=== PATIENT | female | born 1930 | race Caucasian/White ===

== ENCOUNTER 2017-03-01 05:16 | Day surgery (SDC) | payer MEDICARE, OTHER ==
[~2017-03-01] VITALS: Ht 162.6 cm; Wt 65.2 kg
[~2017-03-01 05:16] MED LIST: COUM2TAB PO; LANO0.2510 PO; NEXI40CA PO; TOBRA.3%O RIGHT EYE; TOPR100T15 PO
[2017-03-01] MEDS ORDERED: MUPIROCIN 2% OINT 1 APPLIC/GM SYR NASAL SCH (05:45)
[2017-03-01] MEDS ORDERED: POVIDONE IODINE 5% (ANTISEPSIS KIT) 4 APPLICATIONS EACH NARE SCH (05:45)
[2017-03-01] MEDS ORDERED: CHLORHEXIDINE GLUCONATE 2 % 1 PACK (2 CLOTHS) TOPICAL PRN (05:45)
[2017-03-01] MEDS ORDERED: SODIUM CHLORID 0.9% 500 ML IV PRN (05:45)
[2017-03-01] MEDS ORDERED: NS 1000 ML IV SCH (05:45)
[2017-03-01] MEDS ORDERED: Hold AM Insulin & AM Hypoglycemic medications in diabetic patients PRN (05:45)
[2017-03-01] MEDS ORDERED: NO Heparin, Lovenox, Coumadin at least 12 hours prior to procedure. PRN (05:45)
[2017-03-01] MEDS ORDERED: VANCOMYCIN 1000 MG/NS 250 ML IV SCH ×2 (05:45)
[2017-03-01] MEDS ORDERED: POVIDONE IODINE 5% (ANTISEPSIS KIT) 4 APPLICATIONS EACH NARE PRN (05:45)
[2017-03-01] MEDS ORDERED: LACTATED RINGER'S 1000 ML IV PRN (05:45)
[2017-03-01] MEDS ORDERED: CHLORHEXIDINE GLUCONATE 2 % 1 PACK (2 CLOTHS) TOPICAL SCH (05:45)
[2017-03-01 06:04] VITALS: BP 184/80; PULSE 60; RESP 18; TEMP 98.4; O2SAT 92
[2017-03-01 06:10] LABS: AUTOMATED NEUTROPHIL # 9.1 TH/MM3 (1.8-7.7); BASOPHIL # 0.1 TH/MM3 (0-0.2); BASOPHIL % 0.8 % (0.0-2.0); EOSINOPHIL # 0.2 TH/MM3 (0-0.4); EOSINOPHIL % 1.9 % (0.0-4.0); HEMATOCRIT 40.2 % (35.0-46.0); HEMOGLOBIN 13.1 GM/DL (11.6-15.3); LYMPH % 10.7 % (9.0-44.0); LYMPHOCYTE # 1.3 TH/MM3 (1.0-4.8); MEAN CELL VOLUME 88.2 FL (80.0-100.0); MEAN CORPUSCULAR HEMOGLOBIN 28.7 PG (27.0-34.0); MEAN CORPUSCULAR HGB CONC 32.5 % (32.0-36.0); MEAN PLATELET VOLUME 9.3 FL (7.0-11.0); MONO % 11.2 % (0.0-8.0); MONOCYTE # 1.4 TH/MM3 (0-0.9); NEUT % 75.4 % (16.0-70.0); PLATELET COUNT 279 TH/MM3 (150-450); RED BLOOD COUNT 4.56 MIL/MM3 (4.00-5.30); RED CELL DISTRIBUTION WIDTH 16.8 % (11.6-17.2); WHITE BLOOD COUNT 12.1 TH/MM3 (4.0-11.0)
[2017-03-01 06:23] LABS: PROTHROMBIN TIME - PATIENT 23.4 SEC (9.8-11.6)
[2017-03-01 06:25] LABS: INTERNATIONAL NORMALIZED RATIO 2.3 RATIO
[2017-03-01] MEDS ORDERED: CALC600T10 PO (06:30)
[2017-03-01] MEDS ORDERED: ATEN25TA PO (06:30)
[2017-03-01] MEDS ORDERED: HYDR-3799 PO (06:30)
[2017-03-01] MEDS ORDERED: BIOT10TA PO (06:30)
[2017-03-01] MEDS ORDERED: ACAR25TA PO (06:30)
[2017-03-01] MEDS ORDERED: GLIP5TAB8 PO (06:30)
[2017-03-01] MEDS ORDERED: CHOL5000 PO (06:30)
[2017-03-01] MEDS ORDERED: VITA100T54 PO (06:30)
[2017-03-01] MEDS ORDERED: COUM2TAB PO (06:30)
[2017-03-01] MEDS ORDERED: DIGO0.12 PO (06:30)
[2017-03-01] MEDS ORDERED: VALS1TAB70 PO (06:30)
[2017-03-01] MEDS ORDERED: MIRA50TA PO (06:30)
[2017-03-01 06:35] LABS: BICARBONATE 22.6 MEQ/L (21.0-32.0); CALCIUM 8.8 MG/DL (8.5-10.1); CREATININE 1.56 MG/DL (0.50-1.00)
[2017-03-01] MEDS ORDERED: PROPOFOL 200 MG/20 ML AMP ONE (07:12)
[2017-03-01] MEDS ORDERED: MIDAZOLAM HCL 2 MG/2 ML VIAL ONE (07:13)
[2017-03-01] MEDS ORDERED: VANCOMYCIN 500 MG VIAL ONE (07:15)
[2017-03-01] MEDS ORDERED: LIDOCAINE HCL 2% 50 ML VIAL ONE (07:23)
[2017-03-01] MEDS ORDERED: SODIUM CHLORIDE 0.9% FLUSH 10 ML FLUSH IV FLUSH PRN (08:15)
[2017-03-01] MEDS ORDERED: ACETAMINOPHEN/CODEINE 300 MG/30 MG TAB PO PRN ×2 (08:15)
[2017-03-01] MEDS ORDERED: ONDANSETRON HCL 4 MG/2 ML VIAL IV PUSH PRN (08:15)
--- NOTE | 2017-03-01 08:15 | CATHPROC ---
[employer] HIS Report Study Information Study Number Admission Scheduled Start Study Start [id number] Mar 01 2017 5:16AM 03/01/2017 Mar 01 2017 6:55AM [address] [facility] Cardiac Pacer/ICD Admit Source Facility Department Other [facility] - Physical Director Physician and Clinical Staff Initial Eugenie Loja As400 Developer Manisha Mcbride RT(R) As400 Developer Roosevelt Carroll Other Anesthesia, MANAGER CAREER Recorder Iza Ndiaye,RN Recorder Cecilia Bates,BSRN Scrub Sanjeev Rosario RCIS(BS) Equipment Time Sr. Payroll Processor Description Size Mfg Part Number Used/Scraped DERMABOND, ADHESIVE SKIN [id number] 06:59 CORDIS/PACER * Used GLUE MINI *[id number] 06:59 MEDLINE INDUSTRIES SUTURE, STRIP PLUS 1/2" * Used *[id number] 06:59 MEDLINE PACER RODRIGUEZ, LIMB * 2530 *[id number] Used [id number] 06:59 MEDLINE PACER PACK, PACER CUSTOM * Used *[id number] 07:29 Needle Sponge Count 2 2 Used 07:29 Needle Sponge Count 2 22 Used 07:29 Needle Sponge Count 20 200 Used SUTURE, 2-0 VICRYL [CT1] ([id number]) [id number] 06:59 [employer],WARM AIR CCL * Used *[id number] 07:59 [employer]ICAL PACEMAKER, ALLURE RF DDDRV [id number] Used [facility] PAD, ELECTROSURGICAL 06:59 * [id number] *[id number] Used SURGICAL GROUNDING ORANGE [id number] 07:22 VITATRON MEDTRONIC PLASMABLADE, PEAD 3.0S * Used *[id number] 07:22 VITATRON MEDTRONIC PLASMABLADE, PEAD 3.0S * Used *[id number] Equipment Model, Serial, Lot Number and Expiration Data Description Model Number Serial Number Lot Number Expiration Date PACEMAKER, ALLURE RF [id number] 08-02-2017 History: Risk Factors Hypertension Yes Labs Hgb (g/dl) Hct (%) RBC (MIL/MM3) WBC (l/cumm) Platelets (thousands) 11.60-17.00 35.00-51.00 4.00-5.90 4.00-11.00 150.00-450.00 13.1 40.2 4.5 12.1 279 Glucose (mg/dl) BUN (mg/dl) Creatinine (mg/dl) BUN:Creatinine (1:x) 74.00-106.00 7.00-18.00 0.50-1.30 10.00-20.00 84 37 1.5 24.7 Na (meq/l) K (meq/l) 136.00-145.00 3.50-5.10 140 4.8 INR (PTT:PT) 0.90-1.10 2.3 Medication Medication Total Dose (Bolus/Oral) Medication Total Dosage/Unit 2% XYLOCAINE 50 mL Medications (Bolus/Oral) Medication Time Given Dosage/Unit Administered By Reason 2% XYLOCAINE 03/01/2017 7:54:58 AM 50 mL Eugenie Galvez 50 mL 2% XYLOCAINE given in lab by Eugenie Galvez in Left shoulder via Subcutaneous. Ordered by Eugenie Galvez. Medication (Drip) Medication Time Given Dosage/Unit Concentration/Unit Diluent (ml) Solution VANCOMYCIN DRIP 03/01/2017 7:28:20 AM 1 g 1 g VANCOMYCIN DRIP given in lab by Anesthesia, MANAGER CAREER via Peripheral IV. Ordered by Eugenie Galvez. Valentines son: As per physicians verbal order. Initial Case Assessment Cardiovascular HR NIBP Chest Pain 59 180/80 0 Edema Present Skin color Skin None Normal Warm Dry Circulatory - Right Pulses Dorsalis Pedis 1 Scale (0,1,2,3,4,d) Circulatory - Left Pulses Dorsalis Pedis 1 Scale (0,1,2,3,4,d) Circulatory - Lower Extremities Color Lower Right Color Lower Left Normal Normal Neurological State Oriented to time-place- Alert Moves all extremities person Respiration - General Respiration Rate SpO2 (%) (B/min) 20 96 Chronological Log Time Study Chronological Log 7:08:20 Patient arrived via Bed. 7:08:21 History and physical on the chart. 7:08:21 Patient Name, D.O.B, / Armband Verified By R.N. 7:08:22 Patient has been NPO for More than 6Hrs. 7:08:22 Consent signed by the physician and the patient and verified by the Physical Director staff. 7:08:23 Pre-op and post- op instructions given; patient acknowledges understanding of instructions. 7:08:30 2% CHLORHEXIDINE GLUCONATE WASH AND NASAL SWIPE DONE PRIOR TO PROCEDURE. 7:08:33 Presedation assessment performed by Physical Director RN. 7:09:34 Verbal Stimulation=2 Physical Stimulation=2 Airway=2 Respiration=2 TOTAL=8. (0=absent, 1=li mited, 2=present) 7:10:00 Skin Breakdown- none per pt. 7:15:00 Anesthesia at bedside. Assumes care of patient. 7:17:10 Patient Warmer Placed on the Table. 7:17:11 Disposable Defibrillator Pads Placed On Patient. 7:17:12 Mario Prominences Protected 7:17:43 A # 20 IV was noted in the Forearm (left). Grade = 0 0.9% NaCl at kvo. 7:18:04 A # 20 IV was noted in the Forearm (left). Grade = 0 0.9% NaCl at kvo Assessment: Initial Case, HR=59 BPM, OIJU=868/80 mmhg, Chest Pain=0, Edema=None, Color=Normal, S kin = Warm, Dry Right Pulses: Trino Ped=1 Left Pulses: Trino Ped=1 7:19:00 Lower Right Extremities: Color=Normal Lower Left Extremities: Color=Normal Neurological: State=Alert, Ox3, NICHOLE Respiration: Resp=20 B/min, SpO2=96 % First Sponge And Instrument Count Done by Sanjeev Rosario RCIS(BS). 7:22:34 Hypo's: 2, Sponges: 20, Bovie/scratch: 2 Sutures: 2, Blades: 1, Instruments: 26, Syveck Patches: ~SYVECK PATCH~ verified by DB 7:24:06 Bovie ground pad applied to: right thigh 7:24:46 Table restraints applied according to hospital policy 7:24:55 Left Upper Chest Prepped Times Two. 1 g VANCOMYCIN DRIP given in lab by Anesthesia, MANAGER CAREER via Peripheral IV. Ordered by Eugenie Galvez . Reason: As per 7:28:20 physicians verbal order. 7:33:49 MD paged 7:35:49 MD responded 7:40:57 Reference ECG taken 7:50:32 MD arrived. Time Out. Correct patient, procedure, procedure equipment, site and side verified with physician present. Time 7:53:28 concurred by MD, individual staff and MANAGER CAREER. Time Out #2 - Consents verified, patient in correct position, all results are labled and display ed, safety precautions 7:54:36 taken, antibiotics administered. Time out concurred by MD, individual staff and MANAGER CAREER in procedur e 7:54:38 Case Start 7:54:58 50 mL 2% XYLOCAINE given in lab by Eugenie Galvez in Left shoulder via Subcutaneous. Ordered by Eugenie Galvez. 7:55:50 Surgical Incision Made. 7:56:56 A pocket was created at the Lt. upper chest. 7:59:55 A device was explanted. 8:00:44 Pocket flushed with antibiotic solution 8:01:23 A PACEMAKER, ALLURE RF DDDRV was connected and placed in the pocket. SECOND Sponge And Instrument Count Done by Sanjeev Rosario RCIS(BS). 8:02:39 Hypo's: 2, Sponges: 20, Bovie/scratch: 2 Sutures: 2, Blades: 1, Instruments: 26, Syveck Patches: ~SYVECK PATCH~ verified by DB 8:03:11 Implant Procedure was performed. 8:03:19 A PPM Implant . (Dual) GEN CHANGE 8:04:31 The pocket was closed. 8:04:46 Holding Area notified of successful intervention. SPOKE WITH MANISHA Little 8:06:14 Bedside Report will be given. 8:06:17 Cine recording checked. 8:06:21 Implantable Device card placed in patient's chart. FiNAL Sponge And Instrument Count Done by Sanjeev Rosario RCIS(BS). 8:09:41 Hypo's: 2, Sponges: 20, Bovie/scratch: 2 Sutures: 2, Blades: 1, Instruments: 26, Syveck Patches: ~SYVECK PATCH~ verified by SC 8:10:53 Steri-strips and a sterile dressing applied to site. 8:10:53 Case End 8:16:13 Defibrillator and ground pads removed. Skin intact. 8:20:21 Patient moved to stretcher End Study - Contrast Media Used In Study Contrast Total Opened (mL) Total Used (mL) Total Wasted (mL) Unspecified 0 0 0 End Study - Maximum Contrast Load Max Contrast Load (mL) 217.3 End Study - Radiation Exposure Fluoro Time (minutes) 0.1 End Study - Patient Disposition Complications Transferred To Interventional Outcome No Telemetry Bed successful
[2017-03-01] MEDS ORDERED: HYDR-3288 PO (08:19)
[2017-03-01] MEDS ORDERED: LEVA500T33 PO (08:19)
--- NOTE | 2017-03-01 08:43 | MP ---
cc: DIANE ARNDT HANSCY M.D. DATE OF SURGERY 03/01/2017 PROCEDURE 1. Biventricular pacer defibrillator removal. 2. Biventricular pacer defibrillator replacement and pocket revision. INDICATION FOR PROCEDURE Mrs. King is an 87-year-old female with atrial fibrillation, previous AV node ablation, pacemaker dependent with generator end-of-life, admitted for generator replacement. The risks, the nature and the benefit of the procedure were clearly stated to her. The risks include pneumothorax, cardiac perforation, stroke, need for open heart surgery and even . The patient understood and agreed to proceed. DETAILS OF PROCEDURE After written informed consent was obtained, the patient was brought to the EP lab where she was prepped and draped in the usual sterile fashion. Conscious sedation was initiated and maintained throughout the procedure by the anesthesiologist. Once sedation was verified, the left infraclavicular area over the existing generator was anesthetized with 2% Xylocaine. Using an 11 blade scalpel, a 2 cm incision was made over the existing generator. Dissection was then taken down to the fascial layer using Bovie cautery and blunt dissection. Once exposed the generator was removed from the pocket. Scar tissue was removed around the leads. The pocket was expanded. Pocket revision was performed. The pocket was copiously irrigated using antibiotic solution. The leads were disconnected from the old generator and tested. After adequate pacing and sensing thresholds were obtained, the leads were connected to the new generator and placed into the pocket. I did proceed with wound closure. The fascial layer was approximated with 2-0 Vicryl suture in a continuous fashion. The subcutaneous layer was approximated using 2-0 Vicryl suture in a continuous fashion. The subcuticular layer was approximated using 2-0 Vicryl suture in a continuous fashion. Dermabond adhesive was applied to the wound followed by a sterile pressure dressing. There was no complication. The patient tolerated the procedure. Blood loss minimal. EXPLANTED HARDWARE The explanted biventricular pacer is a [employer], model 3210, serial number [id number]. IMPLANTED HARDWARE The implanted biventricular pacer is a [employer], model UV6940, serial number [id number]. THRESHOLDS The right ventricular pacing threshold in the bipolar mode was 1 volt at 1 millisecond. Lead impedance 110 ohms. R-wave at 12 millivolts. The left ventricular pacing threshold in the bipolar mode was 1.25 volts at 1 milliseconds. Lead impedance 615 ohms. SETTINGS The device is set in a DDD 70, upper limit 110 beats per minute, LV first by 40 milliseconds. CONCLUSIONS 1. Successful biventricular pacer removal. 2. Successful biventricular pacer replacement and pocket revision. COMMENT/RECOMMENDATION The patient is going to be transferred to the recovery room. She will be observed and can be discharged home later today. Eugenie Galvez MD HS/BT /8:02 AM /8:18 AM
[2017-03-01] MEDS ORDERED: SODIUM CHLORIDE 0.9% FLUSH 10 ML FLUSH IV FLUSH SCH (09:00)
--- NOTE | 2017-03-01 22:20 | EKG ---
Date Performed: 03/01/2017 Time Performed: 06:44:22 PTAGE: 87 years EKG: Ventricular pacing. Pacemaker rhythm - no further analysis Abnormal ECG PREVIOUS TRACING : 02/23/2010 05.48 Compared to prior tracing no significant change DOCTOR: Yo Nicolas Interpretating Date/Time 03/01/2017 22:19:53
== END 2017-03-01 11:30 ==
LOC: HCAT 05:16 → HDIC 05:17 → HCAT 11:30
PROVIDERS: ATTEND Internal Medicine Interventional Cardiology
DX: Z45.010 Encounter for checking and testing of cardiac pacemaker pulse generator [battery] (principal); I48.91 Unspecified atrial fibrillation; E11.9 Type 2 diabetes mellitus without complications; R06.02 Shortness of breath; I10 Essential (primary) hypertension; I73.9 Peripheral vascular disease, unspecified; K21.9 Gastro-esophageal reflux disease without esophagitis; N18.9 Chronic kidney disease, unspecified
CPT/HCPCS: 00400; 33229; 80048; 85025; 85610; 85730; 86850; 86900; 86901; 93005; C2621; J2250; J3010; J3370; J7050